=== PATIENT | female | born 1930 | race Caucasian/White ===

== ENCOUNTER → 2018-01-14 | Outpatient (CLI) | payer OTHER | LOC: BMCIMAGING 15:43 | PROVIDERS: ATTEND Internal Medicine | DX: M41.86 Other forms of scoliosis, lumbar region (principal) ==

== ENCOUNTER 2018-01-27 13:14 | Inpatient (IN) | payer OTHER ==
--- NOTE | 2018-01-27 13:40 | CPEKG ---
Heart Rate: 81 RR Interval: 741 P-R Interval: 196 QRSD Interval: 84 QT Interval: 396 QTC Interval: 460 P [place]: 240 QRS [place]: -56 T Wave [place]: 35 EKG Severity - ABNORMAL ECG - EKG Impression: SINUS OR ECTOPIC ATRIAL RHYTHM EKG Impression: PROBABLE INFERIOR INFARCT, OLD Electronically Signed By: Javier Borrero 27-Jan-2018 13:50:32
[2018-01-27] MEDS ORDERED: ASPIRIN 81 MG CHEWABLE TAB PO ONE (13:45)
[2018-01-27] MEDS ORDERED: NS 500 ML IV ONE (13:45)
--- NOTE | 2018-01-27 13:49 | EDPHY ---
H & P Stated Complaint: Right sided sharp CP since Saturday. Time Seen by Provider: 01/27/18 13:38 HPI/ROS: CHIEF COMPLAINT: Chest pain HISTORY OF PRESENT ILLNESS: The patient is an 87-year-old female who comes to the emergency department complaining of right-sided chest pain the woke up from sleep 2:00 a.m. Saturday morning. The pain is been constant since that time. She describes it as a heaviness. She has a history of intermittent atrial fibrillation and is on Multaq but is not anticoagulated because of a fall risk. She denies nausea vomiting no lightheadedness. No fevers. No trauma. She has no previous coronary artery disease. Former smoker REVIEW OF SYSTEMS: Constitutional: denies: chills, fever, recent illness, recent injury EENTM: denies: blurred vision, double vision, nose congestion Respiratory: denies: cough, shortness of breath Cardiac: See HPI denies: irregular heart rate, lightheadedness, palpitations Gastrointestinal/Abdominal: denies: abdominal pain, diarrhea, nausea, vomiting, blood streaked stools Genitourinary: denies: dysuria, frequency, hematuria, pain Musculoskeletal: denies: joint pain, muscle pain Skin: denies: lesions, rash, jaundice, bruising Neurological: denies: headache, numbness, paresthesia, tingling, dizziness, weakness Hematologic/Lymphatic: denies: blood clots, easy bleeding, easy bruising Immunologic/allergic: denies: HIV/AIDS, transplant EXAM: GENERAL: Well-appearing, well-nourished and in no acute distress. HEAD: Atraumatic, normocephalic. EYES: Pupils equal round and reactive to light, extraocular movements intact, sclera anicteric, conjunctiva are normal. ENT: TMs normal, nares patent, oropharynx clear without exudates. Moist mucous membranes. NECK: Normal range of motion, supple without lymphadenopathy or JVD. LUNGS: Breath sounds clear to auscultation bilaterally and equal. No wheezes rales or rhonchi. HEART: Regular rate and rhythm without murmurs, rubs or gallops. ABDOMEN: Soft, nontender, normoactive bowel sounds. No guarding, no rebound. No masses appreciated. BACK: No CVA tenderness, no spinal tenderness, step-offs or deformities EXTREMITIES: Normal range of motion, no pitting or edema. No clubbing or cyanosis. NEUROLOGICAL: Cranial nerves II through XII grossly intact. Normal speech, normal gait. 5/5 strength, normal movement in all extremities, normal sensation PSYCH: Normal mood, normal affect. SKIN: Warm, dry, normal turgor, no visible rashes or lesions. Source: Patient Exam Limitations: No limitations - Personal History Current Tetanus Diphtheria and Acellular Pertussis (TDAP): Yes - Medical/Surgical History Hx Asthma: No Hx Chronic Respiratory Disease: No Hx Diabetes: No Hx Cardiac Disease: Yes Hx Renal Disease: No Hx Cirrhosis: No Hx Alcoholism: No Hx HIV/AIDS: No Hx Splenectomy or Spleen Trauma: No Other PMH: HTN, Afib, hyperlipidemia, r shoulder - Family History Significant Family History: No pertinent family hx - Social History Smoking Status: Former smoker Alcohol Use: Sober Drug Use: None Constitutional: Initial Vital Signs Temperature (C) 36.6 C 01/27/18 13:15 Heart Rate 104 H 01/27/18 13:15 Respiratory Rate 16 01/27/18 13:15 Blood Pressure 179/89 H 01/27/18 13:15 O2 Sat (%) 91 L 01/27/18 13:15 O2 Delivery Mode Nasal Cannula O2 (L/minute) 2 Allergies/Adverse Reactions: No Known Allergies Allergy (Unverified 08/19/11 09:10) Home Medications: Medication Instructions Recorded Atorvastatin Calcium [Lipitor 20 20 mg PO HS 08/19/11 mg (*)] Metoprolol Succinate Xr [Toprol Xl 50 mg PO DAILY 08/19/11 50 mg (*)] Sertraline HCl [Zoloft 100mg (*)] 100 mg PO DAILY 05/01/14 Dronedarone HCl [Multaq 400 mg (*)] 400 mg PO BIDMEAL #60 tab 05/10/14 Aspirin EC [Aspirin EC 81 mg (*)] 81 mg PO DAILY 06/12/16 Potassium Chloride [Klor-Con 10] 10 meq PO DAILY PRN 06/12/16 Cholecalciferol Vit D3 [Vitamin D3 2,000 units PO DAILY 01/27/18 2000 units tab (OTC)] Cyanocobalamin [Vitamin B12 (*)] 5,000 mcg PO DAILY 01/27/18 Furosemide [Lasix 20 MG (*)] 20 mg PO DAILY PRN 01/27/18 Medical Decision Making - Diagnostics EKG Interpretation: An EKG obtained and was read and documented in trace view. Please see trace view for full reading and report. Sinus rhythm, ectopic atrial beat, no acute ischemic changes Imaging: Discussed imaging studies w/ esl instructional assistant Radiologist ED Course/Re-evaluation: We discussed the patient's CT results. She has not had a fever. She has a mild chronic cough. She does have a white count and evidence of pneumonia on CT scan. I will start antibiotics and discuss 3:00 p.m. I discussed the case with Dr. Elena Garcia who agrees with starting antibiotics and Lovenox and will admit. Differential Diagnosis: Partial list of the Differential diagnosis considered include but were not limited to; pneumonia, PE, chest pain and although unlikely based on the history and physical exam, I also considered dissection, aneurysm. - Data Points Laboratory Results: Laboratory Results 01/27/18 13:36 01/27/18 13:36 Medications Given: Atorvastatin Calcium (Lipitor) 20 mg PO HS HERIBERTO Stop: 07/26/18 20:59 Last Admin: 01/27/18 21:21 Dose: 20 mg Doxycycline Hyclate (Doxycycline Hyclate) 100 mg PO BID HERIBERTO PRN Reason: Protocol Stop: 02/26/18 20:59 Last Admin: 01/27/18 21:21 Dose: 100 mg Enoxaparin Sodium (Lovenox) 60 mg SC BID HERIBERTO Stop: 07/26/18 20:59 Last Admin: 01/27/18 21:21 Dose: 60 mg Discontinued Medications Aspirin (Aspirin) 324 mg PO EDNOW ONE Stop: 01/27/18 13:46 Last Admin: 01/27/18 14:00 Dose: 324 mg Enoxaparin Sodium (Lovenox) 60 mg SC EDNOW ONE Stop: 01/27/18 15:01 Last Admin: 01/27/18 15:59 Dose: 60 mg Sodium Chloride (Ns) 500 mls @ 0 mls/hr IV EDNOW ONE; Wide Open PRN Reason: Protocol Stop: 01/27/18 13:46 Last Admin: 01/27/18 14:01 Dose: 500 mls Levofloxacin/Dextrose (Levaquin 750 Mg (Premix)) 150 mls @ 100 mls/hr IV EDNOW ONE PRN Reason: Protocol Stop: 01/27/18 16:28 Last Admin: 01/27/18 15:39 Dose: Not Given Azithromycin 500 mg/ Sodium (Chloride) 255 mls @ 255 mls/hr IV DAILY HERIBERTO PRN Reason: Protocol Stop: 02/26/18 15:29 Last Admin: 01/27/18 18:29 Dose: 255 mls Ceftriaxone Sodium/Dextrose (Rocephin 1 Gm (Premix)) 50 mls @ 100 mls/hr IV DAILY HERIBERTO PRN Reason: Protocol Stop: 02/26/18 15:29 Last Admin: 01/27/18 17:34 Dose: 50 mls Warfarin Sodium (Coumadin) 7.5 mg PO ONCE ONE Stop: 01/27/18 16:31 Last Admin: 01/27/18 17:43 Dose: 7.5 mg Departure - Departure Disposition: [facility] Inpatient Acute Clinical Impression: Pulmonary embolism Qualifiers: Pulmonary embolism type: other Chronicity: unspecified Acute cor pulmonale presence: without acute cor pulmonale Qualified Code(s): I26.99 - Other pulmonary embolism without acute cor pulmonale Pneumonia Qualifiers: Pneumonia type: due to unspecified organism Laterality: right Lung location: lower lobe of lung Qualified Code(s): J18.1 - Lobar pneumonia, unspecified organism Condition: Fair
[2018-01-27 13:53] LABS: PLATELET COUNT 232 10^3/uL (150-400)
[2018-01-27 13:58] LABS: INR 1.11 (0.83-1.16); PROTIME(PATIENT) 14.5 SEC (12.0-15.0)
[2018-01-27] MEDS ORDERED: IOPAMIDOL (ISOVUE 370) 100 ML BTL IV ONE (14:17)
[2018-01-27] MEDS ORDERED: ENOXAPARIN 60 MG/0.6 ML SYR SC ONE (15:00)
[2018-01-27] MEDS ORDERED: ACETAMINOPHEN 325 MG TAB PO PRN (15:24)
[2018-01-27] MEDS ORDERED: AZITHROMYCIN IV 500 MG in NS 250 ML IV SCH (15:30)
--- NOTE | 2018-01-27 16:10 | GHP ---
[f rep st] HISTORY AND PHYSICAL DATE OF ADMISSION: 01/27/2018 CHIEF COMPLAINT: Chest pain. HISTORY OF PRESENT ILLNESS: The patient is an 87-year-old with a history significant for atrial fibr illation and dyslipidemia, who comes in with pleuritic chest pain. She said she was in her usual sta te of health and woke up this morning at 2:00 a.m. with right-sided chest pain. It was pleuritic in nature. It was not associated with any increased shortness of breath, fevers, chills, nausea, vomiti ng, or radiation. She tried to call her doctor's office in the morning and received a call back that she should go directly to the emergency department. She continues to have some pleurisy. They did a D-dimer here in the emergency department that was positive, so had a CT angiogram that revealed pos sibly chronic small pulmonary emboli and an infiltrate more consistent with pneumonia. She denies co ugh, leg pain, leg swelling, or headache. REVIEW OF SYSTEMS: A 10-point review of systems was done with pertinent positives present in HPI. PAST MEDICAL HISTORY: 1. Atrial fibrillation, currently on aspirin daily. Due to falls it has been discontinued. 2. Dyslipidemia. 3. Situational depression for which she has been on sertraline. 4. Hypertension. 5. Interstitial lung disease with normal PFTs. SOCIAL HISTORY: The patient is . She never had kids. She has a niece who is her medical pow er of insurance attorney in [place], named Estefania Blunt. Phone number is [phone]. She also has a ca regiver who spends 5 days a week with her. She lives alone in her own home. Uses a walker for ambul ation. No tobacco use, but she does drink 1-2 glasses of wine at night. She wants to be a full code . FAMILY HISTORY: Parents are . ALLERGIES: No known drug allergies. PHYSICAL EXAMINATION: VITAL SIGNS: She is afebrile. Heart rate is 74, blood pressure 160/82, respi rations 20. She was 91% on room air and 98% on 2 L. GENERAL: She is a very pleasant 87-year-old wi th some mild short-term memory loss. HEENT: Pupils are small and equal. Extraocular movements are intact. Mucous membranes are moist. NECK: Supple. No adenopathy. HEART: Regular. LUNGS: She h as rales on the right lower lung. No wheeze or rhonchi. ABDOMEN: Soft without masses. Normal gaby l sounds. EXTREMITIES: No significant edema. Pulses are present, but diminished bilaterally. MUSC ULOSKELETAL: No obvious joint deformities. SKIN: Intact. NEUROLOGIC: She moves all 4 extremities. PSYCHIATRIC: Mood appropriate. LABORATORY DATA: White count is 11.81 with a left shift. Hemoglobin 13.2 with a platelet count of 2 32. Electrolytes and renal function are normal. D-dimer is elevated at 1.11. LFTs are normal. Electrocardiogram is personally reviewed and interpreted. Sinus rhythm. PROCEDURES: Chest and thoracic CT angiogram: Small partial thrombus, which may be chronic in the ri ght upper lobe. Possible small peripheral subsegmental pulmonary embolus laterally in the right lung base, peripheral patchy opacification and atelectasis in the right lower leg and small right pleural effusion could represent early or resolving pneumonia. ASSESSMENT AND PLAN: 1. An 87-year-old presents with chest pain, found to have a positive D-dimer, possible chronic and s mall subsegmental pulmonary emboli with an infiltrate. Unclear if this is pneumonia versus possible infarct, although the overall clot burden seems small. Plan will be to admit her to the hospital. We will anticoagulate her for presumed pulmonary embolic disease. Check lower extremity Dopplers to se e if she has any lower extremity clots. She has been on Coumadin in the past and will likely restart that with a Lovenox bridge on discharge. She has given herself shots previously. 2. Possible pneumonia. Although patient has no prodrome of pneumonia, she does have a mildly elevat ed white count and infiltrate on CT angiogram. I do not know if this is an infarct versus an atelect asis or pneumonia, but given her age and comorbidities we will go ahead and treat with ceftriaxone an d Zithromax. 3. Atrial fibrillation, currently in sinus rhythm. She has not been on anticoagulation because of t he falls. Her last fall was 2-1/2 years ago. We will have Physical Therapy work with her prior to d ischarge. 4. Hypertension, elevated currently. We will reconcile her medications and follow this. If she rem ains elevated could need to adjust her medications. 5. Interstitial lung disease with normal PFTs done in 2014. I assume her baseline oxygen level is w ithin normal limits. 6. Elevated cholesterol on a statin. Continue. 7. Code status: Discussed with patient at this time. She would like to be a full code. She has a niece who is her medical power of insurance attorney who does not get along with her caregiver who is at the be ide. There are some questionable dynamics with the niece and the caregiver, however, Social Work h as been notified of the niece's concerns. The patient currently is appropriate and able to make her own medical decisions. /[id number]/MODL
[2018-01-27] MEDS ORDERED: WARFARIN SODIUM 7.5 MG TAB PO ONE (16:30)
[2018-01-27] MEDS ORDERED: FUROSEMIDE 20 MG TAB PO PRN (20:30)
[2018-01-27] MEDS ORDERED: POTASSIUM CL 10 MEQ TAB PO PRN (20:30)
[2018-01-27] MEDS: ENOXAPARIN 60 MG/0.6 ML SYR SC SCH (21:21)
[2018-01-27] MEDS: ATORVASTATIN CALCIUM 20 MG TAB PO SCH (21:21)
[2018-01-27] MEDS: DOXYCYCLINE HYCLATE 100 MG CAP/TAB PO SCH (21:21)
[2018-01-28 05:36] LABS: PLATELET COUNT 189 10^3/uL (150-400)
[2018-01-28 05:44] LABS: INR 1.26 (0.83-1.16)
--- NOTE | 2018-01-28 08:59 | HOSPPROG ---
Hospitalist Progress Note Assessment/Plan: PE - CTA pers reviewed/interp, small partial thrombus RUL and possible subsegmental PE at right lung base. B/L LE u/s neg for DVT. Given her pleuritic symptoms on right side, agree with anti-coagulation treatment. Currently 86-94% on room air. -cont Lovenox and coumadin, plan to overlap minimum of 5 days and stop with INR therapeutic -pt has given herself Lovenox injections at home in past AHRF - 2/2 above, wean O2 as able. Possible PNA - could be pulmonary infarct. She has no symptoms of PNA such as cough or fever. -send PCT, stop atbx if negative -monitor for clinical symptoms A fib - In NSR, on Multaq. Was previously anti-coagulated, but stopped due to fall risk. She denies any falls in past 2 years and it's thought her falls may have been related to paroxysmal A fib. -cont Multaq, BB -resuming anti-coagulation as above, discussed risk/benefit and fall prevention Hypertension - Fair control, cont metoprolol Hyperlipidemia - cont statin Full code Dispo - change to inpt for ongoing treatment of PE, needs PT/OT for safety eval Subjective: Pt feels fine. Denies further CP or SOB at rest. No fevers/ chills. No cough. She is eating/drinking, ambulates with cane. Lives independently. Objective: Vital Signs Temp Pulse Resp BP Pulse Ox 36.8 C 66 18 176/83 H 94 01/28/18 08:00 01/28/18 08:00 01/28/18 08:00 01/28/18 08:00 01/28/18 08:00 Laboratory Results 01/28/18 05:07 01/28/18 05:07 01/27/18 01/28/18 01/29/18 05:59 05:59 05:59 Intake Total 500 Balance 500 PT 16.0 SEC (12.0-15.0) H 01/28/18 05:07 INR 1.26 (0.83-1.16) H 01/28/18 05:07 - Physical Exam Constitutional: no apparent distress Eyes: PERRL Ears, Nose, Mouth, Throat: moist mucous membranes Cardiovascular: regular rate and rhythym Respiratory: no respiratory distress, clear to auscultation Gastrointestinal: normoactive bowel sounds, soft, non-tender abdomen Skin: warm Musculoskeletal: full muscle strength Neurologic: AAOx3 Psychiatric: interacting appropriately ICD10 Worksheet Patient Problems: Problems Problem Status Onset Pneumonia Acute Pulmonary embolism Acute Atrial fibrillation Acute Fracture, olecranon Acute Humerus distal fracture Acute Humerus fracture Acute Patellar fracture Acute
[2018-01-28] MEDS: ENOXAPARIN 60 MG/0.6 ML SYR SC SCH ×2 (09:31→21:39)
[2018-01-28] MEDS: CYANO/VITAMIN B12 1000 MCG TAB PO SCH (09:33)
[2018-01-28] MEDS: SERTRALINE HCL 100 MG TAB PO SCH (09:33)
[2018-01-28] MEDS: DOXYCYCLINE HYCLATE 100 MG CAP/TAB PO SCH (09:33)
[2018-01-28] MEDS: METOPROLOL SUCCINATE XR 50 MG TAB PO SCH (09:33)
[2018-01-28] MEDS: DRONEDARONE HCL 400 MG TAB PO SCH ×2 (09:34→17:50)
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
--- NOTE | 2018-01-28 14:48 | PDMN ---
Medical Necessity Medical necessity: change to IP; los>2mn for continued treatment of PE, AHRF , and possible PNA vs pulmonary infarct; requires anticoagulation, PT/OT for safety eval (uses cane) and monitoring for clinical symptoms; comorbid htn, hld , and afib, remote hx falls; per order and progress note 01/28/18
[2018-01-28] MEDS ORDERED: WARFARIN SODIUM 7.5 MG TAB PO SCH (16:00)
[2018-01-28] MEDS ORDERED: POLYETHYLENE GLYCOL 3350 17 GM PKT PO PRN (17:18)
[2018-01-28] MEDS ORDERED: LACTULOSE 20 GM/30 ML UDCUP PO PRN (17:18)
[2018-01-28] MEDS ORDERED: MAGNESIUM HYDROXIDE 30 ML UDCUP PO PRN (17:18)
[2018-01-28] MEDS ORDERED: BISACODYL 10 MG SUPP PR PRN (17:18)
[2018-01-28] MEDS: SENNOSIDES/DOCUSATE SODIUM TAB PO SCH (21:39)
[2018-01-28] MEDS: ATORVASTATIN CALCIUM 20 MG TAB PO SCH (21:39)
[2018-01-29 05:00] LABS: INR 2.55 (0.83-1.16); PROTIME(PATIENT) 27.4 SEC (12.0-15.0)
[2018-01-29 07:21] VITALS: BP 162/72
[2018-01-29] MEDS: METOPROLOL SUCCINATE XR 50 MG TAB PO SCH (08:48)
[2018-01-29] MEDS: SENNOSIDES/DOCUSATE SODIUM TAB PO SCH (08:49)
[2018-01-29] MEDS: DRONEDARONE HCL 400 MG TAB PO SCH (08:51)
[2018-01-29] MEDS: CYANO/VITAMIN B12 1000 MCG TAB PO SCH (08:51)
[2018-01-29] MEDS: SERTRALINE HCL 100 MG TAB PO SCH (08:51)
--- NOTE | 2018-01-29 08:52 | PDIAF ---
- Diagnosis Diagnosis: PE, A fib Code Status: Full Code - Medication Management Discharge Medications: Medications to Continue on Transfer Atorvastatin Calcium [Lipitor 20 mg (*)] 20 mg PO HS 08/19/11 [Last Taken ] Metoprolol Succinate Xr [Toprol Xl 50 mg (*)] 50 mg PO DAILY 08/19/11 [Last Taken 01/27/18] Sertraline HCl [Zoloft 100mg (*)] 100 mg PO DAILY 05/01/14 [Last Taken 01/27/18] Dronedarone HCl [Multaq 400 mg (*)] 400 mg PO BIDMEAL #60 tab 05/10/14 [Last Taken 01/27/18 09:00] Potassium Chloride [Klor-Con 10] 10 meq PO DAILY PRN 06/12/16 [Last Taken ] Cholecalciferol Vit D3 [Vitamin D3 2000 units tab (OTC)] 2,000 units PO DAILY [Last Taken 01/27/18] Cyanocobalamin [Vitamin B12 (*)] 5,000 mcg PO DAILY 01/27/18 [Last Taken ] Furosemide [Lasix 20 MG (*)] 20 mg PO DAILY PRN 01/27/18 [Last Taken 01/27/18] Acetaminophen [Tylenol 325mg (*)] 650 mg PO Q4HRS PRN tab 01/29/18 [Last Taken Unknown] Enoxaparin [Lovenox 60 MG (*)] 60 mg SC BID #3 syr 01/29/18 [Last Taken Unknown] Warfarin Sodium [Coumadin 2.5MG (*)] 2.5 mg PO DAILY16 #30 tab 01/29/18 [Last Taken Unknown] Discharge Medications: Refer to the Discharge Home Medication list for PRN reason. PICC Care - Routine: N/A - Orders Services needed: Home Care, Registered Nurse, Physical Therapy, Occupational Therapy Home Care Face to Face: I certify that this patient was under my care and that I had the required [id number] encounter meeting the encounter requirements on the discharge day. My findings support the fact that the patient is homebound as defined in Home Care Face to Face Continued: CMS Chapter 7 Medicare Benefits Manual 30.1.1 , The condition of the patient is such that there exists a normal inability to leave home and consequently, leaving home would require a considerable and taxing effort. Diet Recommendation: no restrictions on diet Diet Texture: Regular Texture Diet, Thin Liquids, Meds Whole w/Liquids Additional Instructions: Your Lovenox and Coumadin Rx's were electronically sent to your pharmacy. Hold the coumadin dose today. Start the 2.5 mg dose tomorrow and take once daily. Have Dr. Ware's office check your INR on Tuesday 01/30. Further dosing plan per Dr. Ware. - Labs/Radiology PT/INR Date: 01/31/18 (Results to Dr. Shayy Ware) - Follow Up Care Current Providers and Referrals: Shayy Ware MD [Primary Care Provider] - As per Instructions
[2018-01-29] MEDS: ENOXAPARIN 60 MG/0.6 ML SYR SC SCH (10:11)
--- NOTE | 2018-01-29 10:45 | ASMTLACE ---
JENNIFERE Length of stay for Answers: 2 days current admission Acuity / Level of Answers: Yes Care: Did the patient have an inpatient admission? Comorbidities - select Answers: Other Notes: HTN, Afib, HLD all that apply # of Emergency department Answers: 1-2 visits in the last 6 months Social determinants Answers: Mental health diagnosis (anxiety, depression, pers onality disorders, etc.) Score: 10 Date Signed: 01/29/2018 10:45 AM Electronically Signed By:LUCÍA Navas
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
--- NOTE | 2018-01-29 16:56 | GDS ---
[f rep st] DISCHARGE SUMMARY DISCHARGE DIAGNOSES: 1. Acute pulmonary embolism. 2. Acute hypoxemic respiratory failure secondary to above, resolved. 3. Atrial fibrillation. 4. Hypertension. 5. Hyperlipidemia. HISTORY OF DETAILS: Please see dictated history and physical dated January 27, 2018. In brief, the patient is an 87-year-old female with history of atrial fibrillation and hypertension, who presented to the emergency department chest pain. Workup revealed a small partial thrombus in th e right upper lobe, as well as small peripheral subsegmental pulmonary emboli laterally in the right lung base. She was admitted to the hospital for further management. HOSPITAL COURSE: Patient admitted to the med/surg unit. She was initiated on Lovenox as well as Cou madin. She has previously been on anticoagulation for her atrial fibrillation, although this was sto pped due to fall risk. She has not fallen for 2 years. She was found to be in sinus rhythm, was con tinued on her Multaq for her AFib. There was some consideration given to possible pneumonia; however , she has had no cough, no fevers, a negative procalcitonin, and I suspect this may be an infarct miguel latricia bacterial pneumonia. Antibiotics were discontinued. She has tolerated anticoagulation without a ny evidence of bleeding. She received 2 days of Coumadin dose 7.5 mg daily and her INR cristina from 1.1 to 2.5. Therefore, I am holding her Coumadin on the day of discharge, and will reduce her dose to 2 .5 mg daily going forward. She should have her INR checked on Saturday. She will continue to overlap with Lovenox for total of 4 days due to the risk of hypercoagulable state with initiation of Coumadin . Home health care is provided for RN, PT and OT, and I recommended she have her INR drawn on SaturdayJanuary 31, with further Coumadin dosing per Dr. Shayy Ware. DISPOSITION: Patient is discharged home in stable condition with home health care, PT, OT and RN. MEDICATIONS: Please see [employer] for complete updated outpatient medication list. New medications on discharge include: 1. Lovenox 60 mg subcutaneous b.i.d. for 3 more doses. 2. Warfarin 2.5 mg daily to start January 30. Coumadin is held January 29. 3. Tylenol 600 mg p.o. q.4 hours p.r.n. Discontinued medicines: Aspirin is discontinued in the setting of initiation of anticoagulation. She will continue all other outpatient medications as previously prescribed. FOLLOWUP: 1. Dr. Shayy Ware in 2-3 days. 2. Follow up INR on January 31. Further Coumadin management per Dr. Ware. /[id number]/MODL
== END 2018-01-29 10:44 | disposition home health service (06) | DRG 175 ==
LOC: OBSVTOIN 15:01 → F3E 16:05
PROVIDERS: ADMIT Internal Medicine; ATTEND Hospitalist
DX: I26.99 Other pulmonary embolism without acute cor pulmonale (principal); J96.01 Acute respiratory failure with hypoxia; J84.9 Interstitial pulmonary disease, unspecified; I48.0 Paroxysmal atrial fibrillation; I10 Essential (primary) hypertension; E78.5 Hyperlipidemia, unspecified; Z87.891 Personal history of nicotine dependence
CPT/HCPCS: 92523-GN; 92610-GN; 97116-GP; 97161-GP; 97165-GO; G0378; G8978-GP-CI; G8979-GP-CH; G8980-GP-CI; G8987-GO-CJ; G8988-GO-CI; G8996-GN-CH; G8997-GN-CH; G8998-GN-CH; G9165-GN-CI; G9166-GN-CI; G9167-GN-CI; J0456; J0696; J1650; J1956; Q9967

== ENCOUNTER → 2018-02-21 | Outpatient (CLI) | payer OTHER | LOC: FIMAGING 13:29 | PROVIDERS: ATTEND Internal Medicine | DX: I65.23 Occlusion and stenosis of bilateral carotid arteries (principal); E04.2 Nontoxic multinodular goiter; I10 Essential (primary) hypertension ==

== ENCOUNTER 2018-03-26 18:21 | Emergency (ER) | payer OTHER ==
--- NOTE | 2018-03-26 18:26 | EDPHY ---
H & P Time Seen by Provider: 03/26/18 18:21 HPI/ROS: CHIEF COMPLAINT: Fall HISTORY OF PRESENT ILLNESS: The patient is an 87-year-old female who is on Coumadin for history of atrial fibrillation. She was bending over to help her dog when she tripped on a cobble stone and fell forward. She has an abrasion to her left forehead as well as her left forearm. No hematoma or laceration. She initially was unable to get up and called [facility]. After she was helped however she has since been ambulatory. She denies neck or back pain. She denies chest or abdominal pain. REVIEW OF SYSTEMS: Constitutional: denies: chills, fever, recent illness, recent injury EENTM: denies: blurred vision, double vision, nose congestion Respiratory: denies: cough, shortness of breath Cardiac: denies: chest pain, irregular heart rate, lightheadedness, palpitations Gastrointestinal/Abdominal: denies: abdominal pain, diarrhea, nausea, vomiting, blood streaked stools Genitourinary: denies: dysuria, frequency, hematuria, pain Musculoskeletal: denies: joint pain, muscle pain Skin: Abrasion left forehead and left forearm Neurological: denies: headache, numbness, paresthesia, tingling, dizziness, weakness Hematologic/Lymphatic: denies: blood clots, easy bleeding, easy bruising Immunologic/allergic: denies: HIV/AIDS, transplant EXAM: GENERAL: Well-appearing, well-nourished and in no acute distress. HEAD: Atraumatic, normocephalic. EYES: Pupils equal round and reactive to light, extraocular movements intact, sclera anicteric, conjunctiva are normal. ENT: TMs normal, nares patent, oropharynx clear without exudates. Moist mucous membranes. NECK: Normal range of motion, supple without lymphadenopathy or JVD. LUNGS: Breath sounds clear to auscultation bilaterally and equal. No wheezes rales or rhonchi. HEART: Regular rate and rhythm without murmurs, rubs or gallops. ABDOMEN: Soft, nontender, normoactive bowel sounds. No guarding, no rebound. No masses appreciated. BACK: No CVA tenderness, no spinal tenderness, step-offs or deformities EXTREMITIES: Normal range of motion, no pitting or edema. No clubbing or cyanosis. NEUROLOGICAL: Cranial nerves II through XII grossly intact. Normal speech, normal gait. 5/5 strength, normal movement in all extremities, normal sensation PSYCH: Normal mood, normal affect. SKIN: Shallow abrasion to left forearm and left forehead. No significant hematoma or crepitus Source: Patient, EMS Exam Limitations: No limitations - Medical/Surgical History Hx Asthma: No Hx Chronic Respiratory Disease: No Hx Diabetes: No Hx Cardiac Disease: Yes Hx Renal Disease: No Hx Cirrhosis: No Hx Alcoholism: No Hx HIV/AIDS: No Hx Splenectomy or Spleen Trauma: No Other PMH: HTN, Afib, hyperlipidemia, r shoulder - Family History Significant Family History: No pertinent family hx - Social History Smoking Status: Former smoker Alcohol Use: Sober Drug Use: None Constitutional: Initial Vital Signs Temperature (C) 36.5 C 03/26/18 18:37 Heart Rate 88 03/26/18 18:37 Respiratory Rate 19 03/26/18 18:37 Blood Pressure 185/90 H 03/26/18 18:37 O2 Sat (%) 90 L 03/26/18 18:37 O2 Delivery Mode Room Air Allergies/Adverse Reactions: No Known Allergies Allergy (Unverified 08/19/11 09:10) Home Medications: Medication Instructions Recorded Atorvastatin Calcium [Lipitor 20 20 mg PO HS 08/19/11 mg (*)] Metoprolol Succinate Xr [Toprol Xl 50 mg PO DAILY 08/19/11 50 mg (*)] Sertraline HCl [Zoloft 100mg (*)] 100 mg PO DAILY 05/01/14 Dronedarone HCl [Multaq 400 mg (*)] 400 mg PO BIDMEAL #60 tab 05/10/14 Potassium Chloride [Klor-Con 10] 10 meq PO DAILY PRN 06/12/16 Cholecalciferol Vit D3 [Vitamin D3 2,000 units PO DAILY 01/27/18 2000 units tab (OTC)] Cyanocobalamin [Vitamin B12 (*)] 5,000 mcg PO DAILY 01/27/18 Furosemide [Lasix 20 MG (*)] 20 mg PO DAILY PRN 01/27/18 Acetaminophen [Tylenol 325mg (*)] 650 mg PO Q4HRS PRN tab 01/29/18 Enoxaparin [Lovenox 60 MG (*)] 60 mg SC BID #3 syr 01/29/18 Warfarin Sodium [Coumadin 2.5MG 2.5 mg PO DAILY16 #30 tab 01/29/18 (*)] Medical Decision Making - Diagnostics Imaging: Discussed imaging studies w/ call or contact centre manager Radiologist ED Course/Re-evaluation: 6:30 p.m. the patient's INR yesterday was 2. She is refusing blood draw today. 7:00 p.m. We discussed the CT results. The patient is relieved. She otherwise feels well and is eager to go home. She declines further workup or testing. Differential Diagnosis: Partial list of the Differential diagnosis considered include but were not limited to; contusion, abrasion and although unlikely based on the history and physical exam, I also considered fracture, intracranial injury, neck injury. I discussed these differential diagnoses and the plan with the patient as well as the usual and expected course. The patient understands that the diagnosis is provisional and that in medicine we are not always correct and that further workup is often warranted. Usual and customary warnings were given. All of the patient's questions were answered. The patient was instructed to return to the emergency department should the symptoms at all worsen or return, otherwise to followup with the physician as we discussed. Departure - Departure Disposition: Home, Routine, Self-Care Clinical Impression: Abrasion head Qualifiers: Encounter type: initial encounter Qualified Code(s): S00.91XA - Abrasion of unspecified part of head, initial encounter Fall Qualifiers: Encounter type: initial encounter Qualified Code(s): W19.XXXA - Unspecified fall, initial encounter Condition: Fair Instructions: Fall Prevention for Older Adults (ED), Abrasion (ED) Referrals: Patient,NotPresent [Unknown] - As per Instructions
[2018-03-26 19:33] VITALS: BP 155/92
== END 2018-03-26 19:32 | disposition home or self-care (01) ==
LOC: EDUNIT#
DX: S00.91XA Abrasion of unspecified part of head, initial encounter (principal); I10 Essential (primary) hypertension; Z79.01 Long term (current) use of anticoagulants; Z87.891 Personal history of nicotine dependence; W01.0XXA Fall on same level from slipping, tripping and stumbling without subsequent striking against object, initial encounter

== ENCOUNTER → 2018-04-08 | Outpatient (CLI) | payer OTHER | LOC: BMCIMAGING 13:53 | PROVIDERS: ATTEND Internal Medicine Endocrinology, Diabetes & Metabolism | DX: Z13.820 Encounter for screening for osteoporosis (principal); M81.0 Age-related osteoporosis without current pathological fracture ==